=== PATIENT | male | born 1985 | race Caucasian/White ===

== ENCOUNTER 2016-12-17 15:03 | Emergency (ER) | payer OTHER ==
--- NOTE | ~2016-12-17 | CR252 ---
[facility] A Service of [facility] RADIOLOGY TEXT RESULTS PATIENT: NETTE ARGUELLES II LOCATION: SED : 85 UNIT #: [id number] AGE: [address]: RAUDEL AGUERO SEX: M ORDER DR: [id number] [address] [address] [id number] E MR#: [id number] Acc #: [id number] NAME: NETTE ARGUELLES, KATY : 1985 SEX: M STUDY DATE/TIME: 12/17/2016 15:40 UNIT: SED ROOM: STUDY DESCRIPTION: CR Tibia and Fibula 2 Views Lt Attending Physician: Raudel Aguero Aprn Ordering Physician: Raudel Aguero Aprn Primary Care Physician: Primary Care Physician No MEDICAL IMAGING REPORT This report is preliminary unless electronic signature is present. EXAM Left tibia and fibula 4 views, 12/17/2016 HISTORY Left lower extremity pain, laceration to midshaft of left lower extremity at 01:30 p.m. today. Toilet tank cover broke. FINDINGS There is no evidence of fracture, dislocation, or radiopaque foreign body. IMPRESSION Normal tibia and fibula. Dictated by... Nash Mendoza M.D. THIS IS AN ELECTRONICALLY VERIFIED REPORT Nash Mendoza M.D. at 12/18/2016 2:10 PM BRIDGET/lan TD: 12/18/2016 03:38 JOB #: [id number] MEDICAL IMAGING REPORT Page 1 of 1
[~2016-12-17 15:03] MED LIST: AUGMENTIN875 MG PO; KEFLEX500 M1 PO
== END 2016-12-17 17:13 | disposition home or self-care (01) ==
LOC: SED 15:03
DX: S81.812A Laceration without foreign body, left lower leg, initial encounter (principal); F17.210 Nicotine dependence, cigarettes, uncomplicated; W22.8XXA Striking against or struck by other objects, initial encounter; Y92.009 Unspecified place in unspecified non-institutional (private) residence as the place of occurrence of the external cause
CPT/HCPCS: 12001; 73590; 99283